=== PATIENT | male | born 1995 | race African-American/Black ===

== ENCOUNTER 2021-09-10 16:06 | Emergency (ER) | payer BC, SELFPAY ==
[2021-09-10 16:15] VITALS: BP 131/78; PULSE 80; RESP 18; TEMP 37.3; O2SAT 98
[2021-09-10 16:26] VITALS: BP 131/78; PULSE 80; RESP 18; TEMP 37.3; O2SAT 98
--- NOTE | 2021-09-10 17:49 | ED.DENTAL ---
HPI - Dental/Oral General Chief complaint: Dental/Oral Stated complaint: Blisters inside / outside mouth Time Seen by Provider: 09/10/21 17:45 Related Data Allergies Allergy/AdvReac Type Severity Reaction Status Date / Time amoxicillin Allergy Hives Verified 09/10/21 16:26 Review of Systems Review of Systems: CONSTITUTIONAL: Denies fever, chills, or sweats. EYES: Denies visual changes, redness, or discharge. ENT: Denies rhinorrhea, congestion, sore throat, or otalgia, blister lesions orally and on lips which are painful CARDIOVASCULAR: Denies chest pain, palpitations, or edema. RESPIRATORY: Denies cough or dyspnea. GASTROINTESTINAL: Denies abdominal pain, nausea, vomiting, or diarrhea. GENITOURINARY: Denies dysuria or hematuria. SKIN: Denies rash or itching. MUSCULOSKELETAL: Denies back pain, joint pain, or myalgia. NEUROLOGIC: Denies headache, numbness, or weakness. PSYCHIATRIC: Denies anxiety or depression. PMFSH Past Medical History Medical History (Updated 09/13/21 @ 13:10 by Candace Guaman NP) Eczema Surgical History Surgical History (Updated 09/13/21 @ 13:10 by Candace Guaman NP) No history of previous surgery Social History Social History (Updated 09/13/21 @ 13:11 by Candace Guaman NP) Smoking status: Never smoker Alcohol intake: current Alcohol use details: social Substance use type: does not use Living arrangements: with family Gender identity (if verbalized by the patient): Male Comments At time of signature agree with nursing documentation of past medical, surgical, social and family history. There is no relevant family history pertinent to presenting complaints Exam Narrative: GENERAL: Well-appearing, well-nourished, and in no acute distress. HEAD: Normocephalic, atraumatic. EYES: PERRLA and EOMI. ENT: Nares clear, no rhinorrhea or epistaxis. Mucous membranes moist.TM's normal with good light reflex, throat pink with no lesions or exudates or tonsil enlargement, Allyson has some blister type of lesions on his lips, some on the cheeks of his mouth and on gums, some white patches noted to tongue and lips voices pain to areas, no known sick contacts, no blister type of lesions noted to hands or feet, no difficulty with swallowing stated but is painful to try to eat and drink NECK: Supple.no lymphadenopathy CHEST: Clear to auscultation. No respiratory distress.SAO2 98% on room air. HEART: Regular rate and rhythm. No murmur heard. Normal peripheral pulses. ABDOMEN: Soft, nontender, nondistended, normal active bowel sounds. EXTREMITIES: Normal range of motion. No edema. SKIN: Warm, dry, no rash. NEURO: No focal deficits. Alert and oriented x3. Course Course Level of Care: Express Care Visit Vital Signs Vital signs: Vital Signs Temperature 37.3 C 09/10/21 16:15 Pulse Rate 80 09/10/21 16:15 Respiratory Rate 18 09/10/21 16:15 Blood Pressure 131/78 09/10/21 16:15 Pulse Oximetry 98 09/10/21 16:15 Oxygen Delivery Room Air 09/10/21 16:15 Temperature 37.3 C 09/10/21 16:26 Pulse Rate 80 09/10/21 16:26 Respiratory Rate 18 09/10/21 16:26 Blood Pressure 131/78 09/10/21 16:26 Pulse Oximetry 98 09/10/21 16:26 Oxygen Delivery Room Air 09/10/21 16:26 MDM - Dental/Oral Differential Diagnosis Differential diagnosis: Likely gingival abscess, aphthous ulcer and other (hand, foot and mouth, stomatitis) Medical Records Attestation: I reviewed the patient's medical records. Critical Care Time Critical Care Time Critical Care Time: No Discharge Plan Discharge Clinical Impression: Aphthous ulcer Patient Disposition: Home, Self-Care Condition: Stable Instructions: Antibiotic Form Additional Instructions: Avoid temperature extremes May apply heat or ice to the face Gentle brushing and flossing Magic mouthwash Tylenol for lesser pain Use ibuprofen regularly Valtrex If your symptoms persist, change or worsen significantly bef
== END 2021-09-10 18:05 | disposition home or self-care (01) ==
PROVIDERS: Emergency Provider Registered Nurse
DX: K12.0 Recurrent oral aphthae (principal)
CPT/HCPCS: 99213; G0463